=== PATIENT | male | born 1970 | race Caucasian/White ===

== ENCOUNTER 2016-10-20 09:40 | Emergency (ER) ==
[2016-10-20 09:45] VITALS: BP 117/83; TEMP 98.5; BMI 25.8
[2016-10-20] MEDS ORDERED: ZITHROMAX PO STA (10:02)
[2016-10-20] MEDS ORDERED: DUONEB NEB STA (10:02)
[2016-10-20] MEDS ORDERED: DECADRON 4 MG/ML SDV IM STA (10:02)
[2016-10-20 10:28] LABS: BASOPHILS # (AUTO) 0.1 K/uL (0-0.2); EOSINOPHILS # (AUTO) 0.4 K/ul (0.0-0.7); EOSINOPHILS % (AUTO) 3.4 % (0.0-7.0); HEMATOCRIT 42.5 % (42.0-52.0); HEMOGLOBIN 14.7 g/dl (14.0-18.0); IMMATURE GRANULOCYTE % (AUTO) 0.2 % (0.0-5.0); LYMPHOCYTES # (AUTO) 2.3 K/uL (0.60-3.4); LYMPHOCYTES % (AUTO) 21.7 (10.0-50.0); MEAN CORPUSCULAR HEMOGLOBIN 29.7 pg (27.0-31.0); MEAN CORPUSCULAR HGB CONC 34.6 (31.8-35.4); MEAN CORPUSCULAR VOLUME 85.9 fl (80.0-94.0); MONOCYTES # (AUTO) 1.1 K/uL (0.4-2.0); MONOCYTES % (AUTO) 10.8 (0-10); NEUTROPHILS # (AUTO) 6.7 K/ul (2.0-6.9); NEUTROPHILS % (AUTO) 62.9; PLATELET COUNT 204 10^3/uL (140-440); RED BLOOD COUNT 4.95 10^6/ul (4.70-6.10); WHITE BLOOD COUNT 10.58 K/ul (4.2-10.2)
[2016-10-20 10:48] LABS: ALBUMIN 3.8 g/dL (3.4-5.0); ALBUMIN/GLOBULIN RATIO 1.09; ANION GAP 12.1; BILIRUBIN,TOTAL 0.27 mg/dL (0.00-1.20); BUN/CREATININE RATIO 8.86; CALCIUM 8.7 mg/dL (8.2-10.2); CREATININE 0.79 mg/dL (0.60-1.10); POTASSIUM 4.1 mmol/L (3.5-5.1); TOTAL PROTEIN 7.3 g/dL (6.4-8.2)
--- NOTE | 2016-10-20 10:49 | DI ---
EXAM: Chest two views HISTORY: Cough COMPARISON: 05/29/2016 TECHNIQUE: Two views of the chest were performed FINDINGS: No airspace consolidation. There is mild right basilar subsegmental atelectasis. There is granulomatous calcification. There is no pleural effusion or pneumothorax. The heart is normal i n size. The mediastinal contour is normal. There are no acute abnormalities of the bones. IMPRESSION: Mild right basilar subsegmental atelectasis. Otherwise, no acute cardiopulmonary proce ss.
[2016-10-20 10:55] LABS: FLU INTERNAL QC INTERNAL QC VALID; RAPID FLU A NEGATIVE (NEGATIVE); RAPID FLU B NEGATIVE (NEGATIVE)
--- NOTE | 2016-10-20 11:02 | ED.PDOC ---
General ED Provider: Dr. CLEMENTINA PERSON Chief Complaint: Sore Throat Stated Complaint: SORE THROAT Time Seen by Physician: 10:00 (SORE THROAT FLU LIKE SYMTOMS ) Mode of Arrival: Walk-In Information Source: Patient Exam Limitations: No limitations Primary Care Provider: FERNANDA MUÑOZ Nursing and Triage Documentation Reviewed and Agree: Yes EENT Complaint Exam - Throat Complaint/Exam Onset/Duration: 2 DAYS Symptoms Are: Still present Timimg: Intermittent Initial Severity: Moderate Current Severity: Moderate Aggravating: Reports: Eating Alleviating: Reports: None Associated Signs and Symptoms: Reports: Cough, Nasal congestion Uvula Midline: Yes Callie-tonsillar Fluctuence: No Scarlatinaform Rash Present: No Stridor Present: No Sinus Tenderness Present: No Tonsillar Hypertrophy Present: No Tonsillar Exudate Present: No Callie-tonsillar Swelling Present: No Adenopathy Present: No Splenomegaly Present: No Review of Systems - Review Of Systems Constitutional: Reports: Malaise Eyes: Reports: No symptoms Ears, Nose, Mouth, Throat: Reports: Throat pain Respiratory: Reports: Cough Cardiac: Reports: No symptoms GI: Reports: No symptoms : Reports: No symptoms Musculoskeletal: Reports: No symptoms Skin: Reports: No symptoms Neurological: Reports: No symptoms Endocrine: Reports: No symptoms Hematologic/Lymphatic: Reports: No symptoms All Other Systems: Reviewed and Negative Past Medical History - Past Medical History Previously Healthy: No Endocrine: Reports: None Cardiovascular: Reports: CAD, [place] (stents ) Respiratory: Reports: COPD, Pneumonia Hematological: Reports: None Gastrointestinal: Reports: None Genitourinary: Reports: None, Other (S.L.E) Neuro/Psych: Reports: None Musculoskeletal: Reports: None Cancer: Reports: Colon (lupus ) - Surgical History General Surgical History: Reports: Heart Cath (STENTX 1 2006 [facility] ), Orthopedic - Family History Family History: Reports: None - Social History Smoking Status: Current every day smoker, Heavy tobacco smoker Hx Substance Use: No Alcohol Screening: None Physical Exam - Physical Exam Appearance: Well-appearing, No pain distress, Well-nourished Eyes: VIVIEN, EOMI, Conjunctiva clear ENT: Erythema, Exudate Respiratory: Airway patent, Breath sounds clear, Breath sounds equal, Respirations nonlabored Cardiovascular: RRR, Pulses normal, No rub, No murmur GI/: Soft, Nontender, No masses, Bowel sounds normal, No Organomegaly Musculoskeletal: Normal strength, ROM intact, No edema, No calf tenderness Skin: Warm, Dry, Normal color Neurological: Sensation intact, Motor intact, Reflexes intact, Cranial nerves intact, Alert, Oriented Psychiatric: Affect appropriate, Mood appropriate Critical Care Note - Critical Care Note Total Time (mins): 0 Course - Course Hematology/Chemistry: 10/20/16 10:20 10/20/16 10:20 Orders, Labs, Meds: Lab Review 10/20/16 10/20/16 10:10 10:20 WBC 10.58 H RBC 4.95 Hgb 14.7 Hct 42.5 MCV 85.9 MCH 29.7 MCHC 34.6 RDW Coeff of Pedro Luis 13.2 Plt Count 204 Immature Gran % (Auto) 0.2 Neut % (Auto) 62.9 Lymph % (Auto) 21.7 Borden % (Auto) 10.8 H Eos % (Auto) 3.4 Baso % (Auto) 1.0 Immature Gran # (Auto) 0.0 Neut # 6.7 Lymph # 2.3 Borden # 1.1 Eos # 0.4 Baso # 0.1 Sodium 139 Potassium 4.1 Chloride 106 Carbon Dioxide 25 Anion Gap 12.1 BUN 7 Creatinine 0.79 Estimated GFR (MDRD) 106.00 BUN/Creatinine Ratio 8.86 Glucose 89 Calcium 8.7 Total Bilirubin 0.27 AST 17 ALT 21 Alkaline Phosphatase 75 Total Protein 7.3 Albumin 3.8 Globulin 3.5 Albumin/Globulin Ratio 1.09 Influenza A (Rapid) Negative Influenza B (Rapid) Negative Orders Category Date Time Status NEBULIZER TREATMENT Stat CARDIO 10/20/16 10:02 Completed CBC W/ AUTO DIFF Stat LAB 10/20/16 10:20 Completed COMPREHENSIVE METABOLIC PANEL Stat LAB 10/20/16 10:20 Received MOLECULAR GROUP A STREP Stat LAB 10/20/16 10:10 Results RAPID FLU A/B Stat LAB 10/20/16 10:10 Completed STREP SCREEN Stat LAB 10/20/16 10:10 Results Azithromycin [Zithromax] MEDS 10/20/16 10:02 Discontinued 500 mg PO ONCE STA Dexamethasone 4 mg/ml Inj [Decadron 4 mg/ml Sdv] MEDS 10/20/16 10:02 Discontinued 4 mg IM ONCE STA Ipratropium/Albuterol Neb [Duoneb] MEDS 10/20/16 10:02 Discontinued 1 vial NEB ONCE STA CHEST, 2 VIEWS PA & LAT Stat RADS 10/20/16 10:01 Completed Medications Discontinued Medications Generic Name Dose Route Start Last Admin Trade Name Clint PRN Reason Stop Dose Admin Albuterol/Ipratropium 1 vial 10/20/16 10:02 10/20/16 10:21 Duoneb NEB 10/20/16 10:03 1 vial ONCE STA Administration Azithromycin 500 mg 10/20/16 10:02 10/20/16 10:17 Zithromax PO 10/20/16 10:03 500 mg ONCE STA Administration Dexamethasone Sodium Phosphate 4 mg 10/20/16 10:02 10/20/16 10:17 Decadron 4 Mg/Ml Sdv IM 10/20/16 10:03 4 mg ONCE STA Administration Vital Signs: Temp Pulse Resp BP Pulse Ox 10/20/16 09:41 98.5 F 98 H 16 117/83 96 Departure - Departure Time of Disposition: 11:01 Disposition: HOME SELF-CARE Discharge Problem: Sore throat symptom Pharyngitis Qualifiers: Pharyngitis/tonsillitis etiology: unspecified etiology Qualifier Code: (J02.9) Acute pharyngitis, unspecified Instructions: Pharyngitis (ED), Strep Throat (ED) Condition: Good Pt referred to PMD for follow-up: No Additional Instructions: Please call your Family Physician as soon as possible to schedule a follow-up appointment. Prescriptions: Amoxicillin 500 mg PO Q8HR #21 tablet Allergies/Adverse Reactions: Allergies cinnamon [Cinnamon] Adverse Reaction (Verified 10/20/16 09:45) pineapple [Pineapple] Adverse Reaction (Verified 10/20/16 09:45) venom-honey bee [bee venom (honey bee)] Adverse Reaction (Verified 10/20/16 09: 45) venom-wasp [Wasp Venom] Adverse Reaction (Verified 10/20/16 09:45) Home Medications: Ambulatory Orders Aspirin [Aspirin EC] 81 mg PO DAILY 03/21/13 Metoprolol Succinate [Toprol Xl] 25 mg PO BID 03/21/13 Nitroglycerin [Nitrostat] 0.4 mg SL Q5MIN X 3 DOSES PRN 03/21/13 Simvastatin 40 mg PO DAILY 05/29/16 Amoxicillin 500 mg PO Q8HR #21 tablet 10/20/16
== END 2016-10-20 11:18 | disposition home or self-care (01) ==
LOC: ED 09:40
DX: J02.9 Acute pharyngitis, unspecified (principal); R05 Cough; F17.210 Nicotine dependence, cigarettes, uncomplicated; Z79.899 Other long term (current) drug therapy
CPT/HCPCS: 36415; 80053; 85025; 87651; 87804; 87880; 94640; 96372; 99283

== ENCOUNTER 2017-08-27 06:18 | Outpatient (CLI) | END 2017-08-27 06:19 | disposition home or self-care (01) | LOC: CAR 06:18 | PROVIDERS: ATTEND Internal Medicine | DX: I25.10 Atherosclerotic heart disease of native coronary artery without angina pectoris (principal); J44.9 Chronic obstructive pulmonary disease, unspecified; R06.02 Shortness of breath | CPT/HCPCS: 93005; 93010 ==

== ENCOUNTER 2017-08-28 06:24 | Outpatient (CLI) ==
--- NOTE | 2017-08-28 09:11 | US ---
EXAM: ULTRASOUND CAROTID DUPLEX, BILATERAL HISTORY: Hypertension, dizziness FINDINGS: Foley-scale ultrasound, color Doppler and spectral analysis was performed. Velocities are in meters per second. By foley scale and color Doppler imaging, there were regions of heterogeneous plaque formation identif ied within the carotid bulbs and internal carotid arteries. These regions of plaque appeared to angelique in less than 50% vessel diameter. RIGHT: External carotid artery peak systolic velocity: 1.3 Common carotid artery peak systolic velocity/end diastolic velocity: 1.0/0.3 Internal carotid artery peak systolic velocity: 0.9 ICA/CCA peak systolic velocity ratio: 0.9 ICA end diastolic velocity: 0.4 LEFT: External carotid artery peak systolic velocity: 0.8 Common carotid artery peak systolic velocity/end diastolic velocity: 1.0/0.3 Internal carotid artery peak systolic velocity: 1.0 ICA/CCA peak systolic velocity ratio: 0.9 ICA end diastolic velocity: 0.5 The right and left vertebral arteries were antegrade. IMPRESSION: 1. By foley scale and color Doppler imaging, there were regions of heterogeneous plaque formation timur ntified within the carotid bulbs and internal carotid arteries. These regions of plaque appeared to remain less than 50% vessel diameter. 2. Internal carotid artery peak systolic velocities and ICA/CCA peak systolic velocity ratios indica te no hemodynamically significant stenosis bilaterally. 3. Both vertebral arteries were antegrade.
--- NOTE | 2017-08-28 09:12 | DI ---
EXAM: Chest two view, frontal and lateral views. HISTORY: Hypertension. Coronary artery disease. Dizziness. COMPARISON: 10/20/2016, 01/18/2012. FINDINGS: The heart size is normal. There is no pulmonary vascular congestion. The lungs are clear save for calcified granulomatous changes. No pleural effusion or pneumothorax is seen. No acute os seous abnormality identified. Since the prior study, there has been no significant interval change. IMPRESSION: No acute cardiopulmonary process.
--- NOTE | 2017-08-28 11:04 | US ---
EXAM: Ultrasound Aorta HISTORY: Hypertension, coronary artery disease, dizziness COMPARISON: None TECHNIQUE: Ultrasound aorta was performed. FINDINGS: There is atherosclerosis. Measurements are AP by transverse. Proximal aorta: Obscured secondary bowel gas shadowing Mid aorta: 1.8 x 2.1 cm Distal aorta: 1.5 x 1.6 cm Right iliac: 0.7 x 0.9 cm Left iliac: 0.7 x 1.1 cm IMPRESSION: No abdominal aortic aneurysm, noting proximal abdominal aorta obscured secondary to gerardo l gas shadowing
--- NOTE | 2017-09-01 10:32 | STRESSECHO ---
Date of Test: 08/28/17 Ordering Physician: FERNANDA MUÑOZ Reason for Exam: HYPERTENSION, SOB, CAD WITH STENT, DIZZINESS Current Medications: PLAVIX, SIMVASTATIN, ASA, METOPROLOL Physical Findings: S1, S2 Resting EKG: SINUS RHYTHM/ NO ACUTE CHANGES Target Heart Rate: 147/174 STAGE MPH/GRADE HEART RATE BPM BLOOD PRESSURE mmhg RHYTHM S-T SEGMENT +/- UP DOWN SYMPTOMS,COMMENTS At Rest 70 112/70 SR X NONE 1 1.7/10% 110 122/68 SR X NONE 2 2.5/12% 3 3.4/14% 4 4.2/16% 5 5.0/18% Immediately after 125 SR X SHORT OF BREATH Durations of Exercise: 6:40 Maximum Heart Rate Reached: 116/62 Reason for Termination: SHORT OF BREATH 3 MINUTES POST EXERCISE: HR 93 BPM, BP 116/62 MMHG INTERPRETATION: 93% OXYGEN SATURATION WITH EXERCISE ON ROOM AIR METS 9.6 1. NO EVIDENCE OF ISCHEMIA BY ST--T WAVE (FROM HEART RATE 70 BPM TO 125 BPM) 2. NO CHEST PAIN OR DISCOMFORT 3. FEW PVC'S INITIALLY ON EXERCISE 4. BLOOD PRESSURE RESPONSE: NORMAL NORMAL LEFT VENTRICULAR CONTRACTILITY--RESTING AND POST EXERCISE MTDD
--- NOTE | 2017-09-01 10:42 | ECHOSTRESS ---
Date of Exam: 08/28/17 Ordering Physician: FERNANDA MUÑOZ Reason for Echo: HYPERTENSION, SOB, CAD WITH STENT, DIZZINESS M-Mode Normal Adult Results LV Dimensions Normal Adult Results AoV Opening excursions >1.6 LVEDD-base- 3.5-5.8 Ao root dimensions 2.0-3.7 LVESD-base- 3.1-4.6 L. Atrium dimensions 1.9-3.8 Post. Wall thickness 0.8-1.1 IV septum (thickness) 0.7-1.2 Post. Wall excursion 0.72-1.3 Septal motion Systolic motion R. Ventricular cavity 1.5-2.0 LVEF 60% Paradoxical septal wall motion 2-D: NORMAL LEFT VENTRICULAR CONTRACTILITY--RESTING AND POST EXERCISE M-MODE: MV: AV: TV: PV: CHAMBER SIZE: WALL MOTION: NORMAL LEFT VENTRICULAR CONTRACTILITY--RESTING AND POST EXERCISE PERICARDIUM: INTERPRETATION: 1. NORMAL LEFT VENTRICULAR CONTRACTILITY--RESTING AND POST EXERCISE MTDD
== END 2017-08-28 06:25 | disposition home or self-care (01) ==
LOC: CAR 06:24
PROVIDERS: ATTEND Internal Medicine
DX: I25.10 Atherosclerotic heart disease of native coronary artery without angina pectoris (principal); I10 Essential (primary) hypertension; R06.02 Shortness of breath; R42 Dizziness and giddiness; F17.210 Nicotine dependence, cigarettes, uncomplicated
CPT/HCPCS: 76775